=== PATIENT | female | born 1945 | race American Indian/Alaskan Native ===

== ENCOUNTER 2017-08-07 08:41 | Outpatient (CLI) | payer MEDICARE | END 2017-08-07 08:42 | disposition home or self-care (01) | LOC: LABHHL 08:41 | PROVIDERS: ATTEND Specialist | DX: N60.21 Fibroadenosis of right breast (principal); R92.0 Mammographic microcalcification found on diagnostic imaging of breast | CPT/HCPCS: 88305; 88313; 88341; 88342; 88361 ==

== ENCOUNTER 2020-11-07 08:31 | Outpatient (CLI) | payer MEDICARE, OTHER ==
--- NOTE | 2020-11-07 11:10 | Mammography Report ---
DIGITAL SCREENING MAMMOGRAM WITH CAD, 11/07/2020 INDICATION: Routine screening mammography. TECHNIQUE: Digital bilateral 2D mammography was obtained in the craniocaudal and mediolateral obliq ue projections. This examination was interpreted with the benefit of Computer-Aided Detection analysi s. COMPARISON: 10/12/2019 , 07/16/2018. FINDINGS: Breast Density: The breasts are heterogeneously dense, which may obscure small masses. There is no evidence of dominant mass, suspicious calcifications or architectural distortion in the l eft breast. Small nodule posterior right breast on the MLO view only above the nipple appears mildly enlarged. This may represent an intramammary lymph node. Ultrasound is recommended with possible spot compression views. IMPRESSION: Follow up recommendation: Ultrasound BI-RADS Category 0: Incomplete. Needs additional imaging evaluation and/or prior mammograms for newton rison. A "normal" or negative report should not discourage follow up or biopsy of a clinically significant f inding. A written summary of these findings will be mailed to the patient. The patient will be entered into a mammography reporting system which will generate a reminder letter for the patient's next appointmen t at the appropriate interval. The [employer] recommends yearly mammograms starting at age 40 and continuing as l liz as a woman is in good health. Breast MRI is recommended for women with an approximate 20-25% or greater lifetime risk of breast cancer, including women with a strong family history of breast or ova kym cancer or who have been treated for Hodgkin's disease. Signer Name: Getachew Browning MD Signed: 11/07/2020 11:06 AM Workstation Name: [email or web address]
== END 2020-11-07 08:32 | disposition home or self-care (01) ==
LOC: SPVWC 08:31
PROVIDERS: ATTEND Surgery
DX: Z12.31 Encounter for screening mammogram for malignant neoplasm of breast (principal); N63.10 Unspecified lump in the right breast, unspecified quadrant
CPT/HCPCS: 77067

== ENCOUNTER 2020-11-21 08:35 | Outpatient (CLI) | payer MEDICARE, OTHER ==
--- NOTE | 2020-11-21 14:19 | Ultrasound Report ---
RIGHT DIGITAL DIAGNOSTIC MAMMOGRAM WITH CAD , 11/21/2020 RIGHT LIMITED BREAST ULTRASOUND CLINICAL INFORMATION / INDICATION: Abnormal screening mammogram. Screening recall of the right breast for nodular density. TECHNIQUE: Digital right mammographic imaging was performed. Spot compression views were obtained. Li mited ultrasound was performed. This examination was interpreted with the benefit of Computer-Aided D etection (CAD) analysis. COMPARISON: Screening mammogram, 11/07/2020, 10/12/2019, 07/16/2018, 07/30/2017 07/15/2017, 07/15/2016, 6, 12/29/2013. FINDINGS: Breast Density: The breasts are heterogeneously dense, which may obscure small masses. MAMMOGRAPHIC FINDINGS: Spot compression views of the right breast demonstrate a 4 mm oval circumscrib ed density in the far posterior right breast seen only on the MLO view. Retrospectively, this is unch anged when compared to multiple prior mammograms back to 2013. ULTRASOUND FINDINGS: Targeted ultrasound evaluation was performed of the area of interest. Sonograp hic evaluation of the lower one half of the right breast demonstrates multiple scattered small cysts and fibrocystic change. It is unclear exactly which cyst accounts for the density seen on the mammogr am. There is no evidence of suspicious solid mass or shadowing. IMPRESSION: 1. Density in question in the far posterior right breast has a benign appearance and is most likely r elated to either a small intramammary lymph node or cyst. Given its lack of significant interval gonzalez ge over multiple prior mammograms, this is considered a benign finding. Follow up recommendation: Routine yearly BI-RADS Category 2: Benign. A "normal" or negative report should not discourage follow up or biopsy of a clinically significant f inding. A written summary of these findings will be mailed to the patient. The patient will be entered into a mammography reporting system which will generate a reminder letter for the patient's next appointmen t at the appropriate interval. According to the [employer], yearly mammograms are recommended starting at age 40 and continuing as long as a woman is in good health. Breast MRI is recommended for women with an hay roximately 20-25% or greater lifetime risk of breast cancer, including women with a strong family his tory of breast or ovarian cancer and women who have been treated for Hodgkin's disease. Signer Name: Trang Del Rosario MD Signed: 11/21/2020 2:15 PM Workstation Name: [email or web address]
== END 2020-11-21 08:36 | disposition home or self-care (01) ==
LOC: SPVWC 08:35
PROVIDERS: ATTEND Surgery
DX: N60.01 Solitary cyst of right breast (principal)